=== PATIENT | male | born 1995 ===

== ENCOUNTER 2024-12-11 03:29 | Emergency (ER) | payer SELFPAY ==
[~2024-12-11] VITALS: Ht 160 cm; Wt 65.5 kg
[2024-12-11 03:39] VITALS: BP 139/95; PULSE 112; RESP 20; TEMP 98.3; O2SAT 97
== END 2024-12-11 04:10 | disposition home or self-care (01) ==
LOC: EMS 03:29
DX: M25.512 Pain in left shoulder (principal)
CPT/HCPCS: 99283